=== PATIENT | female | born 1955 | race Caucasian/White ===

== ENCOUNTER 2025-07-26 15:48 | Inpatient (IN) | payer OTHER ==
[~2025-07-26] VITALS: Ht 154.9 cm; Wt 78.9 kg
[2025-07-26 15:51] VITALS: O2SAT 98
[2025-07-26] MEDS ORDERED: HYDROCODONE/ACETAMINOPHEN 5/325MG TABLET PO ONE (17:15)
[2025-07-26] MEDS: KETOROLAC 15MG/ML VIAL IM ONE (19:12)
[2025-07-26] MEDS: BACLOFEN 10MG TABLET PO ONE (19:12)
[2025-07-26] MEDS: LIDOCAINE 5% PATCH TOP STA (19:52)
[2025-07-26 23:49] LABS: BASOPHILS % 0.2 % (0.0-2.0); EOSINOPHILS % 0.2 % (0.0-5.0); HEMATOCRIT. 32.9 % (36.0-48.0); HEMOGLOBIN. 11.0 g/dL (12.0-16.0); LYMPHOCYTES % 15.0 % (20.0-50.0); MEAN PLATELET VOLUME 8.9 fl (7.4-10.4); MONOCYTES % 7.4 % (2.0-8.0); NEUTROPHILS % 77.2 % (40.0-76.0); PLATELET 176 x1000/uL (130-400); RED BLOOD CELL COUNT 3.59 mill/uL (4.2-5.4); RED CELL DISTRIBUTION WIDTH 13.0 % (11.6-14.6)
[2025-07-27 00:01] LABS: CREATININE 1.1 mg/dL (0.6-1.0); UREA NITROGEN BLOOD 20 mg/dL (9-23)
[2025-07-27 00:03] LABS: ASPARTATE AMINOTRANSFERASE 29 IU/L (<34); BILIRUBIN DIRECT 0.3 mg/dL (<=3.0); BILIRUBIN TOTAL 0.9 mg/dL (0.1-1.0); PROTEIN TOTAL 6.5 g/dL (6.0-8.3)
[2025-07-27 00:45] VITALS: BP 114/70; PULSE 18; RESP 18; TEMP 36.4; O2SAT 99
[2025-07-27] MEDS ORDERED: ACETAMINOPHEN 650MG/20.3ML UDC GT PRN (01:30)
[2025-07-27] MEDS ORDERED: DOCUSATE SODIUM 100MG CAPSULE PO PRN (01:30)
[2025-07-27] MEDS ORDERED: IPRATROPIUM/ALBUTEROL 0.5-3(2.5)MG/3ML NEB HHN PRN (01:30)
[2025-07-27] MEDS ORDERED: GUAIFENESIN 200MG/10ML SUGAR FREE UDC PO PRN (01:30)
[2025-07-27] MEDS ORDERED: DEXTROSE 50% WATER 50ML SYRINGE IV PRN (01:30)
[2025-07-27] MEDS ORDERED: ONDANSETRON HCL 4MG/2ML INJ IV PRN (01:30)
[2025-07-27] MEDS ORDERED: MAGNESIUM/ALUMINUM HYDROXIDE/SIMETHICONE 30ML UDC PO PRN (01:30)
[2025-07-27] MEDS: SODIUM CHLORIDE 0.9% 1,000 ML IV ONE ×2 (01:45→15:00)
[2025-07-27] MEDS ORDERED: AMLO1TAB12 MT (01:49)
[2025-07-27] MEDS ORDERED: LEVO50TA8 PO (01:49)
[2025-07-27] MEDS ORDERED: CLOP75TA33 PO (01:49)
[2025-07-27] MEDS ORDERED: ALLO100T MT (01:49)
[2025-07-27] MEDS ORDERED: BISO2.5T (01:49)
[2025-07-27] MEDS: TRAMADOL 50MG TABLET PO PRN (02:23)
[2025-07-27 03:25] VITALS: BP 114/70; PULSE 68; RESP 18; TEMP 36.4736
[2025-07-27 04:00] VITALS: BP 100/47; PULSE 61; RESP 17; TEMP 36.7; O2SAT 98
[2025-07-27] MEDS: ACETAMINOPHEN 650MG/20.3ML UDC GT SCH (06:15)
[2025-07-27] MEDS: BACLOFEN 10MG TABLET PO SCH (06:19)
[2025-07-27] MEDS: LEVOTHYROXINE SODIUM 50MCG TABLET PO SCH (06:29)
[2025-07-27 07:26] LABS: CLARITY URINE CLEAR (CLEAR); COLOR URINE YELLOW (YELLOW); GLUCOSE URINE NEGATIVE (NEGATIVE); KETONES URINE NEGATIVE (NEGATIVE); LEUKOCYTE ESTERASE URINE 1+ (NEGATIVE); NITRITE URINE NEGATIVE (NEGATIVE); OCCULT BLOOD URINE NEGATIVE (NEGATIVE); PH URINE 5.5 (4.5-8.0); PROTEIN URINE NEGATIVE (NEGATIVE); SPECIFIC GRAVITY URINE 1.009 (1.005-1.030); UROBILINOGEN URINE 0.2 E.U./dL (0.2-1.0)
[2025-07-27] MEDS: INSULIN LISPRO 100 UNITS/ML SUBCUT SCH (07:50)
[2025-07-27 08:00] VITALS: BP 101/52; TEMP 35.4
[2025-07-27] MEDS: BLOOD SUGAR DIAGNOSTIC STRIP TEST SCH (08:04)
[2025-07-27 08:26] LABS: SQUAMOUS EPITHELIAL CELL URINE 1+ /lpf (RARE/1+)
[2025-07-27 08:28] LABS: RBC URINE NONE SEEN /hpf (0-2)
[2025-07-27 08:29] LABS: BACTERIA URINE TRACE; WBC URINE 15-25 /hpf (0-2)
[2025-07-27] MEDS: ATENOLOL 50 MG TABLET PO SCH (09:00)
[2025-07-27] MEDS ORDERED: ALLOPURINOL 100 MG TABLET PO SCH (09:00)
[2025-07-27] MEDS: FAMOTIDINE 20MG/2ML VIAL IV SCH (09:16)
[2025-07-27] MEDS: CLOPIDOGREL 75MG TABLET PO SCH (09:17)
[2025-07-27] MEDS: AMLODIPINE 5MG TABLET PO SCH (09:17)
[2025-07-27] MEDS: ENOXAPARIN 40MG/0.4ML SYR SUBCUT SCH (09:17)
[2025-07-27 09:38] LABS: TRIGLYCERIDE 82.0 mg/dL (0-150)
[2025-07-27 09:39] LABS: CREATININE 1.0 mg/dL (0.6-1.0); LDL CHOLESTEROL 55.0 mg/dL (5-100)
[2025-07-27 09:40] LABS: UREA NITROGEN BLOOD 20.0 mg/dL (9-23)
[2025-07-27 09:45] LABS: T4 FREE 1.22 ng/dL (0.89-1.76)
[2025-07-27 12:00] VITALS: BP 107/47; PULSE 64; RESP 16; TEMP 35.3; O2SAT 99
[2025-07-27 20:00] VITALS: BP 102/57; PULSE 60; RESP 18; TEMP 36.4; O2SAT 99
[2025-07-27] MEDS: ATORVASTATIN CALCIUM 40MG TABLET PO SCH (20:57)
[2025-07-28] VITALS: BP 103/59; PULSE 61; RESP 18; TEMP 36.5; O2SAT 61
[2025-07-28 04:00] VITALS: BP 102/59; PULSE 58; RESP 17; TEMP 36.2; O2SAT 98
[2025-07-28 08:00] VITALS: BP 108/60; PULSE 64; RESP 18; TEMP 36.4; O2SAT 100
[2025-07-28] MEDS: KETOROLAC 15MG/ML VIAL IV NR (09:10)
[2025-07-28 11:37] VITALS: BP 113/61; PULSE 78; RESP 18; TEMP 97.8
[2025-07-28 12:00] VITALS: BP 113/61; PULSE 80; RESP 18; TEMP 36.6; O2SAT 98
[2025-07-28] MEDS ORDERED: NALOXONE HCL 0.4MG/ML VIAL IV PRN (17:00)
== END 2025-07-28 15:00 | disposition home or self-care (01) | DRG 556 ==
LOC: ER 15:48 → 6EST 23:00 → EDBEDREQTM 23:08 → EDBEDREQ 23:08
PROVIDERS: ADMIT Internal Medicine; ATTEND Internal Medicine
DX: M79.605 Pain in left leg (principal); N17.9 Acute kidney failure, unspecified; E03.9 Hypothyroidism, unspecified; D64.9 Anemia, unspecified; E78.5 Hyperlipidemia, unspecified; I10 Essential (primary) hypertension; Z96.653 Presence of artificial knee joint, bilateral; E11.65 Type 2 diabetes mellitus with hyperglycemia; Z79.899 Other long term (current) drug therapy; Z79.02 Long term (current) use of antithrombotics/antiplatelets; Z88.1 Allergy status to other antibiotic agents
CPT/HCPCS: 36415; 73502; 73552; 73562; 73721; 80048; 80061; 80076; 81003; 82550; 82962; 83036; 84439; 84443; 85025; 97162; 97535; 99285; J1308; J1650; J1885